=== PATIENT | male | born 1930 | race Caucasian/White ===

== ENCOUNTER 2020-06-24 01:25 | Emergency (ER) | payer OTHER ==
[2020-06-24] MEDS ORDERED: Acetaminophen 650 MG Suppository ONE (01:39)
[2020-06-24 02:10] LABS: Hemoglobin 7.1 g/dL (14.0-18.0); Mean Corpuscular HGB CONC 33.6 g/dL (32.0-36.0); Mean Corpuscular Hemoglobin 30.5 pg (27.0-31.0); Mean Corpuscular Volume 90.7 fL (78.0-98.0); Mean Platelet Volume 8.4 fL (7.4-10.4); Platelet Count 339 thou/uL (130-400); RBC Distribution Width 12.9 % (11.5-14.5); Red Blood Cell (RBC) Count 2.33 mill/uL (4.70-6.10); White Blood Cell (WBC) Count 23.9 thou/uL (4.8-10.8)
[2020-06-24 02:27] LABS: Band 3 % (5-11); Lymphocytes 10 % (21-51); MDiff Complete? YES; Metamyelocyte 3 % (0-0); Monocytes 8 % (0-10); Neutrophil 76 % (42-75); Platelet Morphology Comment Appears Adequate; RBC Morphology Normal
[2020-06-24] MEDS ORDERED: Cefepime 2 GM VIAL ONE ×2 (02:28→02:30)
[2020-06-24] MEDS ORDERED: Azithromycin 500 MG VIAL ONE (02:28)
[2020-06-24] MEDS ORDERED: Sodium Chloride 0.9% 100 ML ONE (02:28)
[2020-06-24 02:29] LABS: ALT (SGPT) 27 U/L (8-55); AST (SGOT) 32 U/L (5-34); Albumin 3.3 g/dL (3.4-4.8); Alkaline Phosphatase 63 U/L (40-110); Anion Gap 16 mmol/L (10-20); BUN (Urea Nitrogen) 18 mg/dL (8.4-25.7); Bilirubin, Total 0.8 mg/dL (0.2-1.2); Calc. Creatinine Clearance 0 mL/min (70-130); Calcium 8.8 mg/dL (7.8-10.44); Carbon Dioxide 20 mmol/L (23-31); Chloride 97 mmol/L (98-107); Estimated GFR-MDRD 49; Glucose 159 mg/dL (83-110); Potassium 4.2 mmol/L (3.5-5.1); Protein, Total 7.3 g/dL (5.8-8.1); Sodium 129 mmol/L (136-145)
[2020-06-24] MEDS ORDERED: cefTRIAXone\\ROCEPHIN 2 GM VIAL ONE (02:29)
[2020-06-24 02:49] LABS: CKMB 1.7 ng/mL (0-6.6)
[2020-06-24] MEDS ORDERED: Aspirin 300 MG Suppository ONE (03:21)
--- NOTE | 2020-06-24 07:50 | RAD ---
EXAM: CHEST ONE VIEW HISTORY: Dyspnea. Covid positive with oxygen desaturation at home. Fever. 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 Cardiac silhouette is magnified by projection. There are interstitial and patchy parenchymal airspace opacities scattered within the lungs bilaterally greater in the midlung zones and right lung base suggesting viral pneumonitis. The osseous structures are intact. IMPRESSION: Interstitial and patchy parenchymal airspace opacities bilaterally suggesting viral pneumonitis such as Covid 19.
--- NOTE | 2020-06-24 08:13 | CT ---
PRELIMINARY REPORT/[facility]/EMERGENCY AFTER HOURS PROCEDURE: EXAM: CTA Chest with Intravenous Contrast CLINICAL HISTORY: DYSPNEA; COVID+ WITH DESATURATION AT HOME. 89F FEVER TECHNIQUE: Axial CTA images of the chest with intravenous contrast. Three-dimensional MIP/volume rend ered reformations were performed. CONTRAST: With; ISOVUE 370, 70ml; COMPARISON: None provided. FINDINGS: PULMONARY ARTERIES There is no intraluminal filling defect suspicious for PE. AORTA No thoracic aortic aneurysm or dissection. LUNGS Extensive bilateral pulmonary consolidation compatible with a history of Covid pneumonia. PLEURAL SPACES No pleural effusion. No pneumothorax. HEART AND MEDIASTINUM No cardiomegaly. No significant pericardial effusion. Postop changes noted. LYMPH NODES No lymphadenopathy. BONES No focal osseous abnormality or acute fracture. CHEST WALL AND UPPER ABDOMEN Images through the upper abdomen are grossly unremarkable other than a hiatal hernia. Large cortical cyst on the left kidney. The chest wall is unremarkable. IMPRESSION: No pulmonary emboli. Extensive bilateral consolidation. ELECTRONICALLY SIGNED BY: Jaden Deleon MD Jun 24, 2020 3:30:47 AM CDT This report is intended for review by the ordering physician only, in accordance of law. If you recei ve this report in error, please call [facility] at [phone]. FINAL REPORT CTA CHEST: FINDINGS: Pulmonary arteries are well opacified. No evidence of pulmonary embolus. Extensive bilateral pulmonary infiltrates are seen. I am in agreement with the preliminary report. POS: CHANG
[2020-06-24] MEDS ORDERED: Iopamidol 370 76% 100 ML VIAL ONE (13:39)
== END 2020-06-24 07:00 ==
LOC: ERS 01:25
DX: U07.1 COVID-19 (principal); J96.91 Respiratory failure, unspecified with hypoxia; R79.89 Other specified abnormal findings of blood chemistry; R77.8 Other specified abnormalities of plasma proteins; E87.1 Hypo-osmolality and hyponatremia; Z79.899 Other long term (current) drug therapy; Z79.82 Long term (current) use of aspirin
CPT/HCPCS: 36415; 71045; 71275; 80053; 82274; 82553; 83605; 84484; 85025; 87040; 93005; 96365; 96367; J0456; J0692; J0696; J3490; Q9967